=== PATIENT | female | born 1995 | race Caucasian/White ===

== ENCOUNTER 2018-06-07 08:12 | Emergency (ER) | payer MEDICAID ==
[~2018-06-07] VITALS: Ht 167.6 cm; Wt 146.9 kg
[~2018-06-07 08:12] MED LIST: BACL20TA PO; LAMO25TA5 PO; METF-950 PO; NAPR-996 PO; OMEP40CA37 PO; ZIPR40CA2 PO
[2018-06-07 08:26] VITALS: BP 138/80
[2018-06-07] MEDS ORDERED: CIPR7.5D2 LEFT EAR (08:52)
== END 2018-06-07 09:10 | disposition home or self-care (01) ==
LOC: ER 08:13
DX: H60.92 Unspecified otitis externa, left ear (principal); R68.84 Jaw pain; E11.9 Type 2 diabetes mellitus without complications; G89.29 Other chronic pain; F12.90 Cannabis use, unspecified, uncomplicated; Z88.8 Allergy status to other drugs, medicaments and biological substances; Z88.1 Allergy status to other antibiotic agents; Z88.2 Allergy status to sulfonamides; Z79.899 Other long term (current) drug therapy; Z86.14 Personal history of Methicillin resistant Staphylococcus aureus infection
CPT/HCPCS: 99283

== ENCOUNTER 2018-07-30 00:20 | Emergency (ER) | payer MEDICAID ==
[~2018-07-30] VITALS: Ht 167.6 cm; Wt 128.6 kg
[~2018-07-30 00:20] MED LIST changes: +CIPR7.5D2 LEFT EAR
[2018-07-30 00:23] VITALS: BP 143/81
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
== END 2018-07-30 02:08 | disposition home or self-care (01) ==
LOC: ER 00:20
DX: O26.892 Other specified pregnancy related conditions, second trimester (principal); G89.29 Other chronic pain; E11.9 Type 2 diabetes mellitus without complications; F12.90 Cannabis use, unspecified, uncomplicated; Z88.1 Allergy status to other antibiotic agents; Z88.2 Allergy status to sulfonamides; Z88.8 Allergy status to other drugs, medicaments and biological substances; Z79.84 Long term (current) use of oral hypoglycemic drugs; Z79.899 Other long term (current) drug therapy; Z87.891 Personal history of nicotine dependence; Z3A.19 19 weeks gestation of pregnancy
CPT/HCPCS: 99281; 99284

== ENCOUNTER 2021-09-06 17:34 | Emergency (ER) | payer MEDICAID ==
[~2021-09-06] VITALS: Ht 167.6 cm; Wt 145.4 kg
[~2021-09-06 17:34] MED LIST changes: +METF-1203 PO; -METF-950 PO; +OMEP40CA21 PO; -OMEP40CA37 PO
[2021-09-06] MEDS ORDERED: albuterol 2.5 MG/3 ML nebule NEB ONE (18:20)
[2021-09-06] MEDS ORDERED: levoFLOXACIN 250mg tablet PO ONE (18:20)
[2021-09-06] MEDS ORDERED: LEVO500T90 PO (18:26)
[2021-09-06] MEDS ORDERED: ALBU18HF2 INH (18:26)
[2021-09-06 18:44] VITALS: BP 130/74
== END 2021-09-06 18:59 | disposition home or self-care (01) ==
LOC: ER 17:36
DX: J20.9 Acute bronchitis, unspecified (principal); E11.9 Type 2 diabetes mellitus without complications; G89.29 Other chronic pain; F41.9 Anxiety disorder, unspecified; F32.9 Major depressive disorder, single episode, unspecified; F12.90 Cannabis use, unspecified, uncomplicated; Z98.890 Other specified postprocedural states; Z86.14 Personal history of Methicillin resistant Staphylococcus aureus infection; Z79.899 Other long term (current) drug therapy; Z88.1 Allergy status to other antibiotic agents; Z88.2 Allergy status to sulfonamides; Z88.8 Allergy status to other drugs, medicaments and biological substances; Z79.84 Long term (current) use of oral hypoglycemic drugs
CPT/HCPCS: 71045; 87502; 87503; 93005; 94640; 94760; 99285

== ENCOUNTER 2021-09-30 15:45 | Emergency (ER) | payer MEDICAID ==
[~2021-09-30] VITALS: Ht 167.6 cm; Wt 145.4 kg
[~2021-09-30 15:45] MED LIST changes: +ALBU18HF2 INH; +LEVO500T90 PO
[2021-09-30 16:00] VITALS: BP 132/90
[2021-09-30] MEDS ORDERED: naproxen 500mg tablet PO ONE (19:30)
[2021-09-30] MEDS ORDERED: ONDA4TAB12 PO (20:29)
[2021-09-30] MEDS ORDERED: ondansetron 4mg/5ml UD cup PO ONE (20:30)
== END 2021-09-30 20:44 | disposition home or self-care (01) ==
LOC: ER 15:46
DX: R51.9 Headache, unspecified (principal); Z20.822 Contact with and (suspected) exposure to COVID-19; R11.2 Nausea with vomiting, unspecified; R19.7 Diarrhea, unspecified; B34.9 Viral infection, unspecified; E11.9 Type 2 diabetes mellitus without complications; F12.90 Cannabis use, unspecified, uncomplicated; G89.29 Other chronic pain; Z87.01 Personal history of pneumonia (recurrent); Z86.14 Personal history of Methicillin resistant Staphylococcus aureus infection; Z88.8 Allergy status to other drugs, medicaments and biological substances; Z88.1 Allergy status to other antibiotic agents; Z88.2 Allergy status to sulfonamides; Z79.2 Long term (current) use of antibiotics; Z79.899 Other long term (current) drug therapy; Z86.16 Personal history of COVID-19
CPT/HCPCS: 87635; 99283; C9803